=== PATIENT | female | born 1945 | race Caucasian/White ===

== ENCOUNTER → 2018-08-03 | Outpatient (CLI) | payer MEDICARE, BC ==
[~2018-08-03] MED LIST: ASPIRIN 32325 MG/TAB PO; BENICAR PO; CALTRATE-600 W600 MG PO; CARVEDILOL PO; CELEXA40 MG PO; EVISTA PO; FERROUS SU325 MG/TAB PO; FUROSEMIDE PO; VITAMIN E200 I1 PO
== END ==
LOC: MC.RAD 13:39
DX: Z12.31 Encounter for screening mammogram for malignant neoplasm of breast (principal); Z98.890 Other specified postprocedural states

== ENCOUNTER → 2020-05-04 | Outpatient (CLI) | payer MEDICARE, BC | LOC: ZCOL.LAB 09:57 | DX: M25.462 Effusion, left knee (principal) ==